=== PATIENT | female | born 1995 | race African-American/Black ===

== ENCOUNTER 2019-11-02 15:26 | Emergency (ER) | payer OTHER ==
[~2019-11-02] VITALS: Ht 162.6 cm; Wt 65.8 kg
[~2019-11-02 15:26] MED LIST: BIRTH CONTROL PATCH; LORTABELXR PO
[2019-11-02 16:35] LABS: ABSOLUTE NEUTROPHILS 5.7 thou/uL (1.4-8.2); BASOPHILS 0.6 % (0.0-2.0); EOSINOPHILS 0.1 % (0.0-3.0); HEMATOCRIT 41.9 % (37.0-47.0); HEMOGLOBIN 13.7 gm/dL (12.0-15.0); LYMPHOCYTES 13.4 % (24.0-44.0); MCH 30.5 pg (26.0-34.0); MCHC 32.6 g/dL (28.0-37.0); MCV 93.4 fL (80.0-100.0); MONOCYTES 4.6 % (1.0-8.0); PLATELET COUNT 223 thou/uL (150-400); POLYS 81.3 % (36.0-66.0); RBC 4.49 mil/uL (4.20-5.00); RDW 13.1 % (10.5-14.5)
[2019-11-02 16:46] LABS: ANION GAP 16 mmol/L (7-16); BUN 9 mg/dL (7-18); CALCIUM 9.6 mg/dL (8.5-10.1); CHLORIDE 101 mmol/L (98-107); CO2 22 mmol/L (21-32); CREATININE 0.8 mg/dL (0.6-1.0); GLUCOSE 162 mg/dL (74-106); POTASSIUM 4.1 mmol/L (3.5-5.1); SODIUM 139 mmol/L (136-145)
[2019-11-02 16:52] LABS: DIRECT BILIRUBIN < 0.1 mg/dL (<0.1-0.2); LIPASE 104 U/L (73-393); SGOT 18 U/L (15-37); SGPT 11 U/L (30-65); TOTAL BILIRUBIN 0.3 mg/dL (<0.1-1.0); TOTAL PROTEIN 8.1 g/dL (6.4-8.2)
[2019-11-02] MEDS ORDERED: ZOFRAN ODT4 MG PO (18:33)
[2019-11-02] MEDS ORDERED: LOPERAMIDE 2 MG2 M1 PO (18:33)
[2019-11-02 19:00] VITALS: BP 155/80
== END 2019-11-02 18:50 | disposition home or self-care (01) ==
LOC: ER 15:26
PROVIDERS: Emergency Medicine
DX: K52.9 Noninfective gastroenteritis and colitis, unspecified (principal)

== ENCOUNTER 2020-02-27 16:55 | Emergency (ER) | payer OTHER ==
[~2020-02-27] VITALS: Ht 165.1 cm; Wt 56.7 kg
[~2020-02-27 16:55] MED LIST changes: +LOPERAMIDE 2 MG2 M1 PO; +ZOFRAN ODT4 MG PO
[2020-02-27 17:29] LABS: ABSOLUTE NEUTROPHILS 5.7 thou/uL (1.4-8.2); BASOPHILS 0.8 % (0.0-2.0); EOSINOPHILS 0.8 % (0.0-3.0); HEMATOCRIT 39.9 % (37.0-47.0); HEMOGLOBIN 13.8 gm/dL (12.0-15.0); MCHC 34.6 g/dL (28.0-37.0); MCV 92.6 fL (80.0-100.0); PLATELET COUNT 277 thou/uL (150-400); POLYS 57.4 % (36.0-66.0); RBC 4.31 mil/uL (4.20-5.00)
[2020-02-27 17:39] LABS: ANION GAP 17 mmol/L (7-16); BUN 6 mg/dL (7-18); CHLORIDE 101 mmol/L (98-107); CO2 20 mmol/L (21-32); CREATININE 0.9 mg/dL (0.6-1.0); GLUCOSE 89 mg/dL (74-106); SODIUM 138 mmol/L (136-145)
[2020-02-27 17:45] LABS: ALBUMIN 4.2 g/dL (3.4-5.0); DIRECT BILIRUBIN < 0.1 mg/dL (<0.1-0.2); LIPASE 115 U/L (73-393); SGOT 25 U/L (15-37); SGPT 17 U/L (30-65); TOTAL BILIRUBIN 0.8 mg/dL (0.2-1.0)
[2020-02-27] MEDS ORDERED: ZOFRAN ODT4 MG PO (18:16)
[2020-02-27 18:25] VITALS: BP 115/73
== END 2020-02-27 18:17 | disposition home or self-care (01) ==
LOC: ER 16:55
PROVIDERS: Emergency Medicine
DX: E87.2 Acidosis (principal); R42 Dizziness and giddiness; R11.2 Nausea with vomiting, unspecified; R51 Headache; Z88.8 Allergy status to other drugs, medicaments and biological substances

== ENCOUNTER 2020-07-16 04:39 | Emergency (ER) | payer OTHER ==
[~2020-07-16] VITALS: Ht 165.1 cm; Wt 49.9 kg
[2020-07-16 04:55] VITALS: BP 100/64
== END 2020-07-16 05:28 | disposition home or self-care (01) ==
LOC: ER 04:39
DX: R50.9 Fever, unspecified (principal); J02.9 Acute pharyngitis, unspecified; Z79.899 Other long term (current) drug therapy; Z88.8 Allergy status to other drugs, medicaments and biological substances

== ENCOUNTER 2020-08-09 15:12 | Emergency (ER) | payer OTHER ==
[2020-08-09 15:22] VITALS: BP 107/46
== END 2020-08-09 17:01 | disposition left against medical advice (07) ==
LOC: ER 15:12
DX: M54.5 Low back pain (principal); Z53.21 Procedure and treatment not carried out due to patient leaving prior to being seen by health care provider